=== PATIENT | male | born 1975 | race Asian ===

== ENCOUNTER 2023-03-03 13:03 | Emergency (ER) | payer OTHER ==
[~2023-03-03] VITALS: Ht 165.1 cm; Wt 64.0 kg
[2023-03-03 13:52] VITALS: BP 127/77; PULSE 84; RESP 18; TEMP 99.5; O2SAT 99
[2023-03-03] MEDS ORDERED: MIRABULK PO (16:06)
[2023-03-03] MEDS ORDERED: IBUP-2213 PO (16:06)
[2023-03-03 16:15] LABS: APPEARANCE,URINE CLEAR (CLEAR); BILIRUBIN,URINE NEGATIVE (NEGATIVE); BLOOD, URINE NEGATIVE (NEGATIVE); COLOR,URINE YELLOW (YELLOW); LEUKOCYTE ESTERASE ,URINE NEGATIVE (NEGATIVE); NITRITE, URINE NEGATIVE (NEGATIVE); PROTEIN,URINE NEGATIVE (NEGATIVE); UGLUCOSE NEGATIVE (NEGATIVE); UROBILINOGEN,URINE 0.2 EU/dL (0.2 - 1)
[2023-03-03 16:45] VITALS: BP 127/77; PULSE 84; RESP 18; TEMP 99.5; O2SAT 99
== END 2023-03-03 17:37 | disposition home or self-care (01) ==
LOC: MED 13:03
DX: K59.00 Constipation, unspecified (principal); R10.30 Lower abdominal pain, unspecified; M54.50 Low back pain, unspecified; Z79.899 Other long term (current) drug therapy
CPT/HCPCS: 81003; 87491; 99283